=== PATIENT | male | born 1995 | race Caucasian/White ===

== ENCOUNTER → 2018-03-18 08:33 | Day surgery (SDC) | payer BC ==
[~2018-03-18 08:33] MED LIST: Buffered Lidocaine 0.9% SYRIN* 5 ML/SYR SYRINGE INTRADERM ONE; Bupivacaine 0.25% SDV* 30 ML ONE; Dexamethasone TAB* 4 MG ONE; Dexamethasone TAB* 4 MG PO ONE; DiMENhydriNATE IV* 50 MG/ML VIAL IV PUSH PRN; Famotidine IV* 10 MG/ML 2 ML (20 mg) IV ONE; Famotidine IV* 10 MG/ML 2 ML (20 mg) ONE; KETAMINE HCL* 50 MG/ML 10 ML VIAL ONE; Lidocaine 0.5%* 50 ML SDV ONE; Lidocaine 2% PF * 5 ML VIAL ONE; Midazolam* 1 MG/ML 2 ML VIAL (2 MG) ONE; Midazolam* 1 MG/ML 5 ML VIAL (5 MG) ONE; Morphine VIAL* 4 MG/ML VIAL (1 ml vial) IV PRN; Naloxone* 0.4 MG/ML 1 ML VIAL IV PRN; Ondansetron ODT TAB* 4 MG ONE; Ondansetron TAB* 4 MG PO ONE; PROCHLORPERAZINE INJ 5 MG/ML 2 ML VIAL IV PRN; Propofol* 10 MG/ML 20 ML BTL IV PUSH ONE; Succinylcholine* 20 MG/ML 10 ML VIAL ONE; fentaNYL* 50 MCG/ML 2 ML VIAL (100 MCG VIAL) IV PRN; fentaNYL* 50 MCG/ML 5 ML VIAL (250 MCG VIAL) ONE; oxyCODONE/Acetamin 5/325 MG* TAB ONE; oxyCODONE/Acetamin 5/325 MG* TAB PO PRN
--- NOTE | 2018-03-18 14:37 | OP ---
Operative Report - Detailed - Operation Details Date of Operation: 03/18/18 Surgeon(s): Nadia Rodriguez [employer] Marker(s): none Anesthesiologist(s): Dr. Singer Anesthesia: GETA Pre-Op Diagnosis: Primary hyperparathyroidism Post-Op Diagnosis: same Planned Operative Procedure(s): parathyroidectomy Specimen(s)/Culture(s) Description: left lower parathyroid Wound Classification: clean Brief History/Indications: 22 yo with primary hyperparathyroidism
[2018-03-18 17:31] VITALS: BP 121/68
--- NOTE | 2018-03-19 08:39 | OP ---
DATE OF OPERATION: 03/18/18 - [facility] DATE OF : [birth year] SURGEON: Jo Purcell MD FILTER OPERATOR: Nadia Adams MD ANESTHESIA: Dr. Lucrecia MD PREOPERATIVE DIAGNOSIS: Primary hyperparathyroidism. POSTOPERATIVE DIAGNOSIS: Primary hyperparathyroidism. OPERATION PERFORMED: Parathyroidectomy, four gland exploration. ESTIMATED BLOOD LOSS: less than 10cc INDICATION FOR SURGERY: Darryl Hannon is a very pleasant 22-year-old gentleman who was diagnosed with primary hyperparathyroidism after complaining for several months of fatigue, mental fogginess, and irritability. He was found on routine labs to have elevated calcium and further workup showed that he did indeed have elevated parathyroid hormone levels. Imaging suspected that there may be a left lower parathyroid adenoma however there were other nodules on neck ultrasound and 4D CT that were also suggestive of parathyroids. For this reason, the decision was made to undergo 4 gland exploration and parathyroidectomy. The patient understood the risks, benefits, and alternatives of the procedure, which included the risks of recurrent laryngeal nerve injury, bleeding, wound infection, and possible permanent hypoparathyroidism. He also understood that there was a risk for reoperation should an abnormal gland not be identified. INTRAOPERATIVE FINDINGS: All four glands were visualized, the left lower parathyroid gland was clearly enlarged and adenomatous in appearance DESCRIPTION OF PROCEDURE: The patient was brought back to the operating room and placed on operating room in supine position. Venodyne boots were placed in the bilateral lower extremities for DVT prophylaxis and no antibiotics were administered. General endotracheal anesthesia was induced and the patient's neck was positioned in the sniffing, extended position. The NIMS nerve monitor probes were attached and connected and the arms were tucked bilaterally. The anesthesiologist placed an arterial line in the left radial artery for serial PTH draws. Local anesthesia comprising of 0.25% Marcaine plus 0.5% Marcaine was administered to the neck. The neck was prepped and draped in normal sterile fashion and a time-out was performed verifying the patient's name, MRN, and the procedure to be performed. A incision was selected over a natural crease in the midline of the neck and approximately 4 cm incision was made. The skin was divided using a 15 blade scalpel and was divided down onto the subcutaneous tissue. The platysma was divided and subplatysmal flaps were developed both inferiorly and superiorly. Once the flaps were developed, the median raphe between the strap muscles were divided and retracted laterally. Next, the left thyroid lobe was delivered up and out of the neck in order to visualize the parathyroids. The left lower parathyroid was investigated first, it was located somewhat deep to the left lower pole of the thyroid lobe. It was clearly adenomatous and enlarged and once this was visualized attention was turned to identifying the left upper parathyroid gland, which was located into normal anatomic position. Once this was identified we turned to the right thyroid lobe. The strap muscles were again retracted laterally. The thyroid lobe on the right side was lifted up and in and out of the neck. The right lower parathyroid gland was located in the thyrothymic ligament and it appeared normal and in the right upper parathyroid was also identified and was in normal anatomic position. It was encasing the large fat pad, but it also appeared to be normal. After identifying all four glands, the left parathyroid was dissected out completely, the vascular pedicle was divided using LigaSure device and at this point the time 0 parathyroid hormone level sent. Serial samples were sent at time 5 and time 10, and the baseline had been sent prior to beginning the surgery. The intraoperative PTH results returned, baseline was 10, which was elevated time 0 was 7.9, time 5 was 2.6 and time 10 was 1.8. This satisfied the [place] criterion for the following intraoperative PTH levels. Next, the neck was irrigated with sterile water and hemostasis was obtained. TISSEEL was placed into the neck bilaterally. The strap muscles were reapproximated using 4-0 Vicryl sutures. The platysma was reapproximated using 4-0 Vicryl sutures and the skin was closed using running 5-0 Prolene. Sterile dressing was placed on the neck and the patient's general anesthesia was reversed, and he was taken to the PACU in stable condition. At the end of the case, all counts were correct. I was present during the entirety of the case. [id number]/[facility] #: [id number] PRITI
== END | disposition home or self-care (01) ==
LOC: OR 08:33
PROVIDERS: ATTEND Surgery
DX: E21.0 Primary hyperparathyroidism (principal)
CPT/HCPCS: 36415; 83970; 88305; A9270-GY; J0330; J2250; J2704; J3010; J8540